=== PATIENT | female | born 1945 | race Caucasian/White ===

== ENCOUNTER 2018-03-18 20:29 | Inpatient (IN) | payer OTHER ==
[~2018-03-18] VITALS: Ht 157.5 cm; Wt 71.9 kg
[2018-03-18] MEDS ORDERED: SODIUM CHLORIDE 0.9% 1,000 ML IV ONE (21:17)
[2018-03-18 23:59] LABS: BASOPHILS % 0.3 % (0.0-2.0); EOSINOPHILS % 0.3 % (0.0-5.0); HEMATOCRIT. 23.3 % (36.0-48.0); HEMOGLOBIN. 7.7 g/dL (12.0-16.0); LYMPHOCYTES % 7.6 % (20.0-50.0); MEAN CORPUSCULAR HEMOGLOBIN 28.6 pg (28.0-32.0); MEAN CORPUSCULAR VOLUME 86.3 fL (81.0-99.0); MEAN PLATELET VOLUME 9.7 fl (7.4-10.4); NEUTROPHILS % 86.8 % (40.0-76.0); PLATELET 296 x1000/uL (130-400); RED CELL DISTRIBUTION WIDTH 15.5 % (11.6-14.6)
[2018-03-19 00:04] LABS: CHLORIDE 99 mEq/L (98-107)
[2018-03-19 00:12] LABS: BETA HYDROXYBUTYRATE 0.8 mMol/L (0.0-0.3)
[2018-03-19] MEDS ORDERED: MORPHINE SULFATE 4 MG/ML CPJ (NOT FOR IM USE) IV NR (01:00)
[2018-03-19] MEDS ORDERED: KETOROLAC 30MG/ML VIAL IV NR (01:00)
[2018-03-19] MEDS ORDERED: INSULIN REGULAR (HUMULIN R) 300UNITS/3ML SUBCUT NR (01:00)
[2018-03-19 06:00] VITALS: BP 102/40
[2018-03-19 08:00] VITALS: BP 147/57
[2018-03-19] MEDS ORDERED: MORPHINE SULFATE 4 MG/ML CPJ (NOT FOR IM USE) IV PRN (09:45)
[2018-03-19] MEDS ORDERED: DEXTROSE 50% WATER 50ML SYRINGE IV PRN (09:45)
[2018-03-19] MEDS ORDERED: ACETAMINOPHEN 325MG TABLET PO PRN (09:45)
[2018-03-19] MEDS ORDERED: HYDROCODONE/ACETAMINOPHEN 5/325MG TABLET PO PRN ×2 (09:45→12:15)
[2018-03-19] MEDS ORDERED: ONDANSETRON HCL 4MG/2ML INJ IV PRN (09:45)
[2018-03-19 12:00] VITALS: BP 95/57
[2018-03-19] MEDS: INSULIN LISPRO 100 UNITS/ML SUBCUT SCH ×3 (12:31→21:00)
[2018-03-19] MEDS: BLOOD SUGAR DIAGNOSTIC STRIP TEST SCH ×3 (12:31→21:54)
[2018-03-19] MEDS: SODIUM CHLORIDE 0.45% 1,000 ML IV SCH (12:39)
[2018-03-19 13:58] LABS: TOTAL IRON BINDING CAPACITY 290 ug/dL (250-450)
[2018-03-19 16:00] VITALS: BP 98/62
[2018-03-19] MEDS ORDERED: DOCUSATE SODIUM 100MG CAPSULE PO SCH (17:00)
[2018-03-19] MEDS ORDERED: ACETAMINOPHEN 650MG/20.3ML UDC GT PRN (17:45)
[2018-03-19 20:00] VITALS: BP 141/48
[2018-03-20] VITALS: BP 141/57
[2018-03-20 04:00] VITALS: BP 113/54
[2018-03-20] MEDS: BLOOD SUGAR DIAGNOSTIC STRIP TEST SCH ×4 (07:01→21:00)
[2018-03-20] MEDS: INSULIN LISPRO 100 UNITS/ML SUBCUT SCH ×4 (07:01→22:35)
[2018-03-20] MEDS ORDERED: SODIUM BICARBONATE 4% (2.4MEQ) 5ML VIAL IV ONE (07:56)
[2018-03-20] MEDS ORDERED: LIDOCAINE HCL 1% 20ML VIAL (Pyxis) INJ ONE (07:56)
[2018-03-20 08:00] VITALS: BP 149/110
[2018-03-20] MEDS: DOCUSATE SODIUM SUGAR FREE 100MG/10ML UDC GT SCH ×2 (08:43→16:57)
[2018-03-20 10:34] LABS: BASOPHILS % 0.5 % (0.0-2.0); EOSINOPHILS % 1.2 % (0.0-5.0); HEMATOCRIT. 23.8 % (36.0-48.0); HEMOGLOBIN. 7.9 g/dL (12.0-16.0); LYMPHOCYTES % 11.4 % (20.0-50.0); MEAN CORPUSCULAR HEMOGLOBIN 28.6 pg (28.0-32.0); MEAN CORPUSCULAR VOLUME 86.5 fL (81.0-99.0); MEAN PLATELET VOLUME 11.5 fl (7.4-10.4); MONOCYTES % 5.9 % (2.0-8.0); PLATELET 286 x1000/uL (130-400); RED BLOOD CELL COUNT 2.75 mill/uL (4.2-5.4); RED CELL DISTRIBUTION WIDTH 15.7 % (11.6-14.6)
[2018-03-20 10:41] LABS: CHLORIDE 103 mEq/L (98-107)
[2018-03-20 12:00] VITALS: BP 135/41
[2018-03-20] MEDS: SODIUM CHLORIDE 0.45% 1,000 ML IV SCH (12:32)
[2018-03-20 16:00] VITALS: BP 127/77
[2018-03-20] MEDS: NYSTATIN POWDER 15GM TOP SCH ×2 (16:00→22:23)
[2018-03-20] MEDS: IRON SUCROSE COMPLEX 100 MG/5 ML ML IV SCH (18:23)
[2018-03-20 20:00] VITALS: BP 108/51
[2018-03-21] VITALS: BP 132/41
[2018-03-21 04:00] VITALS: BP 160/50
[2018-03-21] MEDS: BLOOD SUGAR DIAGNOSTIC STRIP TEST SCH ×4 (07:20→21:00)
[2018-03-21 08:00] VITALS: BP 156/49
[2018-03-21] MEDS: NYSTATIN POWDER 15GM TOP SCH ×2 (09:03→16:47)
[2018-03-21] MEDS: DOCUSATE SODIUM SUGAR FREE 100MG/10ML UDC GT SCH ×2 (09:03→16:47)
[2018-03-21] MEDS: INSULIN LISPRO 100 UNITS/ML SUBCUT SCH ×4 (09:09→21:00)
[2018-03-21 10:41] LABS: BASOPHILS % 0.4 % (0.0-2.0); EOSINOPHILS % 1.9 % (0.0-5.0); LYMPHOCYTES % 9.4 % (20.0-50.0); MEAN CORPUSCULAR HEMOGLOBIN 28.4 pg (28.0-32.0); MEAN CORPUSCULAR VOLUME 86.8 fL (81.0-99.0); MEAN PLATELET VOLUME 10.7 fl (7.4-10.4); MONOCYTES % 6.7 % (2.0-8.0); NEUTROPHILS % 81.6 % (40.0-76.0); PLATELET 272 x1000/uL (130-400); RED BLOOD CELL COUNT 2.41 mill/uL (4.2-5.4); RED CELL DISTRIBUTION WIDTH 15.8 % (11.6-14.6)
[2018-03-21 10:50] LABS: HEMOGLOBIN. 6.9 g/dL (12.0-16.0)
[2018-03-21 10:51] LABS: CHLORIDE 102 mEq/L (98-107)
[2018-03-21 12:00] VITALS: BP 140/62
[2018-03-21 16:00] VITALS: BP 124/49
[2018-03-21] MEDS: IRON SUCROSE COMPLEX 100 MG/5 ML ML IV SCH (18:45)
[2018-03-21 20:00] VITALS: BP 142/47
[2018-03-21] MEDS: INSULIN GLARGINE UD 100 UNITS/ML SYR SUBCUT SCH (22:00)
[2018-03-22] VITALS (9 sets, daily range): BP systolic 112–166; BP diastolic 47–69
[2018-03-22] MEDS: BLOOD SUGAR DIAGNOSTIC STRIP TEST SCH ×4 (07:20→20:06)
[2018-03-22 07:34] LABS: MEAN CORPUSCULAR VOLUME 86.7 fL (81.0-99.0); PLATELET 294 x1000/uL (130-400); RED BLOOD CELL COUNT 1.51 mill/uL (4.2-5.4); RED CELL DISTRIBUTION WIDTH 15.7 % (11.6-14.6)
[2018-03-22 08:04] LABS: HEMATOCRIT 13.1 % (36.0-48.0); HEMOGLOBIN 4.4 g/dL (12.0-16.0)
[2018-03-22 08:55] LABS: CHLORIDE 108 mEq/L (98-107)
[2018-03-22] MEDS: DOCUSATE SODIUM SUGAR FREE 100MG/10ML UDC GT SCH ×2 (09:07→17:41)
[2018-03-22] MEDS: NYSTATIN POWDER 15GM TOP SCH ×2 (09:08→17:41)
[2018-03-22] MEDS: INSULIN LISPRO 100 UNITS/ML SUBCUT SCH ×4 (09:10→20:35)
[2018-03-22 10:57] LABS: HEMATOCRIT 19.8 % (36.0-48.0); HEMOGLOBIN 6.5 g/dL (12.0-16.0)
[2018-03-22] MEDS: IRON SUCROSE COMPLEX 100 MG/5 ML ML IV SCH (17:41)
[2018-03-22] MEDS: LORAZEPAM 2MG/ML CPJ IV PRN (20:06)
[2018-03-22] MEDS: INSULIN GLARGINE UD 100 UNITS/ML SYR SUBCUT SCH (22:03)
[2018-03-23] VITALS: BP 165/54
[2018-03-23 00:04] LABS: HEMOGLOBIN 8.2 g/dL (12.0-16.0)
[2018-03-23 04:00] VITALS: BP 155/51
[2018-03-23] MEDS: LORAZEPAM 2MG/ML CPJ IV PRN (04:35)
[2018-03-23] MEDS: BLOOD SUGAR DIAGNOSTIC STRIP TEST SCH ×2 (06:38→12:18)
[2018-03-23 08:00] VITALS: BP 141/60
[2018-03-23] MEDS: DOCUSATE SODIUM SUGAR FREE 100MG/10ML UDC GT SCH (08:47)
[2018-03-23] MEDS: INSULIN LISPRO 100 UNITS/ML SUBCUT SCH (08:48)
[2018-03-23] MEDS: NYSTATIN POWDER 15GM TOP SCH (08:50)
[2018-03-23 08:55] LABS: BASOPHILS % 0.4 % (0.0-2.0); EOSINOPHILS % 2.7 % (0.0-5.0); HEMATOCRIT. 29.2 % (36.0-48.0); HEMOGLOBIN. 9.7 g/dL (12.0-16.0); LYMPHOCYTES % 12.4 % (20.0-50.0); MEAN CORPUSCULAR HEMOGLOBIN 28.9 pg (28.0-32.0); MEAN CORPUSCULAR VOLUME 86.6 fL (81.0-99.0); MEAN PLATELET VOLUME 10.3 fl (7.4-10.4); NEUTROPHILS % 77.5 % (40.0-76.0); PLATELET 310 x1000/uL (130-400); RED BLOOD CELL COUNT 3.37 mill/uL (4.2-5.4); RED CELL DISTRIBUTION WIDTH 15.7 % (11.6-14.6)
[2018-03-23 09:30] LABS: CHLORIDE 106 mEq/L (98-107)
[2018-03-23 10:40] LABS: PHOSPHORUS 3.7 mg/dL (2.5-4.9)
[2018-03-23 11:18] VITALS: BP 141/60
[2018-03-23 12:13] VITALS: BP 137/56
== END 2018-03-23 12:45 | DRG 562 ==
LOC: ER 22:24 → 6EST 03-19 01:08 → ENRESERV 03-19 03:39
PROVIDERS: ADMIT Internal Medicine Nephrology; ATTEND Internal Medicine Nephrology
PROC: B548ZZA Ultrasonography of Superior Vena Cava, Guidance (ICD-10-PCS; 2018-03-20)
PROC: 02HV33Z Insertion of Infusion Device into Superior Vena Cava, Percutaneous Approach (ICD-10-PCS; 2018-03-20)
PROC: B548ZZA Ultrasonography of Superior Vena Cava, Guidance (ICD-10-PCS; 2018-03-20)
PROC: 30233N1 Transfusion of Nonautologous Red Blood Cells into Peripheral Vein, Percutaneous Approach (ICD-10-PCS; principal; 2018-03-22)
DX: S82.251A Displaced comminuted fracture of shaft of right tibia, initial encounter for closed fracture (principal); E43 Unspecified severe protein-calorie malnutrition; G93.40 Encephalopathy, unspecified; R47.01 Aphasia; E87.1 Hypo-osmolality and hyponatremia; I69.354 Hemiplegia and hemiparesis following cerebral infarction affecting left non-dominant side; Z66 Do not resuscitate; D64.9 Anemia, unspecified; E11.65 Type 2 diabetes mellitus with hyperglycemia; G40.909 Epilepsy, unspecified, not intractable, without status epilepticus; E86.0 Dehydration; F03.90 Unspecified dementia, unspecified severity, without behavioral disturbance, psychotic disturbance, mood disturbance, and anxiety; G93.89 Other specified disorders of brain; I10 Essential (primary) hypertension; S82.451A Displaced comminuted fracture of shaft of right fibula, initial encounter for closed fracture; W06.XXXA Fall from bed, initial encounter; Y93.89 Activity, other specified; Y92.89 Other specified places as the place of occurrence of the external cause; Y99.8 Other external cause status; Z74.01 Bed confinement status; Z88.0 Allergy status to penicillin; Z68.29 Body mass index [BMI] 29.0-29.9, adult
CPT/HCPCS: 36415; 36569; 73030; 73502; 73560; 73590; 73600; 73700; 76937; 77001; 80048; 82010; 82728; 82962; 83540; 83550; 83735; 84100; 84134; 85014; 85018; 85027; 86850; 86900; 86920; 93005; 93306; 93970; 96361; 96372; 96374; 96375; 99285; C1725; C1893; J1815; J1885; J2060; J2270; J3490; J7030; J7040; J7050; P9016